=== PATIENT | female | born 1995 | race Caucasian/White ===

== ENCOUNTER 2017-02-17 21:34 | Emergency (ER) | payer OTHER ==
[2017-02-17 22:53] LABS: Urine Appearance Clear; Urine Blood Negative (Negative); Urine Color Yellow; Urine Ketones Negative (Negative); Urine Protein Negative (Negative); Urine Specific Gravity 1.026 (1.010-1.030); Urine Urobilinogen Negative (Negative)
[2017-02-17 22:56] LABS: ABS Basophils 0.1 10^3/ul (0-0.2); ABS Eosinophils 0.2 10^3/ul (0-0.6); ABS Lymphocytes 1.7 10^3/ul (1.0-4.8); ABS Monocytes 0.9 10^3/ul (0-0.8); ABS Neutrophils 6.9 10^3/ul (1.5-7.7); ABS Nucleated RBC 0 10^3/ul; Eosinophil % 1.7 % (0-6); Hematocrit 35 % (35-47); Hemoglobin 12.1 g/dl (12.0-16.0); Lymphocyte % 17.3 % (25-47); Mean Corpuscular HGB Conc 34 g/dl (31-36); Mean Corpuscular Hemoglobin 32 pg (27-31); Mean Corpuscular Volume 94 fL (80-97); Mean Platelet Volume 7 um3 (7.4-10.4); Nucleated Red Blood Cells % 0; Platelet Count 279 10^3/ul (150-450); Red Blood Count 3.76 10^6/ul (4.0-5.4); Red Cell Distribution Width 13 % (10.5-15); White Blood Count 9.6 10^3/ul (3.5-10.8)
[2017-02-17 23:06] LABS: EGFR Non-African American 69.8 (>60)
[2017-02-18 02:00] VITALS: BP 102/64
--- NOTE | 2017-03-17 22:40 | ED ---
Rustam Lock Alfonso, scribed for Tomas Cummings MD on 02/17/17 at 2258 . Abdominal Pain/Female - HPI Summary HPI Summary: This patient is a 21 year old F presenting to [facility] with a chief complaint of stabbing lower abd pain radiating to low back starting at 20:45 today. The patient rates the pain 8/10 in severity. Symptoms alleviated by nothing. Patient reports nausea. Patient denies fever, chills, diaphoresis, dysuria, and vaginal discharge. She is sexually active with one partner and does not use protection. She has an IUD so her menstrual periods are irregular. Last BM was yesterday and normal. - History of Current Complaint Chief Complaint: EDAbdPain Stated Complaint: LOW ABD & BACK PAIN Hx Obtained From: Patient Onset/Duration: Sudden Onset - at 20:45 today, Lasting Hours, Still Present Timing: Constant Severity Currently: Moderate Pain Intensity: 8 Pain Scale Used: 0-10 Numeric Location: Other - lower Radiates: Yes Radiates to: Back - low Character: Other: - stabbing Aggravating Factor(s): Nothing Alleviating Factor(s): Nothing Associated Signs and Symptoms: Positive: Other: - nausea; negative fever, chills , diaphoresis, dysuria, and vaginal discharge Allergies/Adverse Reactions: Allergies Allergy/AdvReac Type Severity Reaction Status Date / Time Gluten Meal Allergy GI Upset Verified 02/17/17 21:39 PMH/Surg Hx/FS Hx/Imm Hx Sensory History: Denies: Hx Deafness Opthamlomology History: Denies: Hx Legally Blind EENT History: Denies: Hx Deafness - Surgical History Surgery Procedure, Year, and Place: None Infectious Disease History: No Infectious Disease History: Denies: Traveled Outside the [place] in Last 30 Days - Family History Known Family History: Positive: Cardiac Disease, Other - lung cancer - Social History Alcohol Use: Occasionally Hx Substance Use: No Substance Use Type: Reports: None Hx Tobacco Use: No Smoking Status (MU): Never Smoked Tobacco Review of Systems Negative: Fever, Chills, Skin Diaphoresis Positive: Abdominal Pain - lower, Nausea Negative: dysuria, other - vaginal discharge All Other Systems Reviewed And Are Negative: Yes Physical Exam - Summary Physical Exam Summary: Appearance: Well-appearing, Well-nourished Skin: Warm, Dry, No rash Eyes: Normal, PERRL, EOMI, sclera anicteric ENT: Normal Neck: Supple, nontender Respiratory: Clear to auscultation Cardiovascular: S1, S2, no murmur, no rub, no gallop Abdomen: Soft, nontender, no organomegaly. She points to the suprapubic region in regards to pain. Bowel sounds: Present Musculoskeletal: Normal, Strength/ROM Intact, no edema, pulses symmetrical. Neurological: Normal, A&Ox3, cranial nerves II-XII WNL, follows commands, gait not tested, sensation intact to pin and light touch Psychiatric: affect normal, behavior appropriate, dressed appropriately, judgment intact Triage Information Reviewed: Yes Vital Signs On Initial Exam: Initial Vitals Temp Pulse Resp BP Pulse Ox 98.0 F 106 14 136/89 99 02/17/17 21:37 02/17/17 21:37 02/17/17 21:37 02/17/17 21:37 02/17/17 21:37 Vital Signs Reviewed: Yes - [place] Coma Scale Coma Scale Total: 15 Diagnostics - Vital Signs Vital Signs Temp Pulse Resp BP Pulse Ox 02/17/17 21:37 98.0 F 106 14 136/89 99 - Laboratory Lab Results: Lab Results 02/17/17 Range/Units 22:03 Urine Color Yellow Urine Appearance Clear Urine pH 6.0 (5-9) Ur Specific [place] 1.026 (1.010-1.030) Urine Protein Negative (Negative) Urine Ketones Negative (Negative) Urine Blood Negative (Negative) Urine Nitrate Negative (Negative) Urine Bilirubin Negative (Negative) Urine Urobilinogen Negative (Negative) Ur Leukocyte Esterase Negative (Negative) Urine Glucose Negative (Negative) Result Diagrams: 02/17/17 22:03 02/17/17 22:03 Lab Statement: Any lab studies that have been ordered have been reviewed, and results considered in the medical decision making process. Abdominal Pain Fem Course/Dx - Course Course Of Treatment: Patient refused [employer] exam. No UTI. No appendicitis. Patient will be discharged home and follow up with her own [employer]. The patient is agreeable with this plan. - Diagnoses Provider Diagnoses: atypical abdominal pain Discharge - Discharge Plan Condition: Fair Disposition: HOME Patient Education Materials: Pelvic Pain in Women (ED) Referrals: No Primary Care Phys,NOPCP [Primary Care Provider] - Additional Instructions: follow up with commercial lines underwriter The documentation as recorded by the Rustam alberto Alfonso accurately reflects the service I personally performed and the decisions made by me, Tomas Cummings MD.
== END 2017-02-18 02:01 | disposition home or self-care (01) ==
LOC: ED 21:34
DX: R10.9 Unspecified abdominal pain (principal); R11.0 Nausea; M54.5 Low back pain
CPT/HCPCS: 36415; 80053; 81003; 83690; 85025; 99283